=== PATIENT | male | born 1960 | race Caucasian/White ===

== ENCOUNTER 2022-11-01 14:08 | Emergency (ER) | payer OTHER ==
[~2022-11-01] VITALS: Ht 175.3 cm; Wt 81.6 kg
--- NOTE | 2022-11-01 14:20 | NUR ---
BIB [facility], RIGHT KNEE PAIN,S/P FALL FROM LDDER WHILE CLEANING HIS GUTTER NO LOC, HIT BACK OF HEAD AGAINST GROUND
[2022-11-01] MEDS ORDERED: NAPR-1192 PO ×2 (17:06→17:10)
--- NOTE | 2022-11-01 17:30 | NUR ---
knee immobilizer place by emt , provided crutches and instructions given
[2022-11-01] MEDS ORDERED: LISINOPRIL (20MG) 20 MG TABLET ONE (17:35)
[2022-11-01 17:46] VITALS: BP 161/81
--- NOTE | 2022-11-01 17:46 | NUR ---
Patient discharged to home in stable condition. Written and verbal after care instructions given. Patient verbalizes understanding of instruction.
[2022-11-01] MEDS ORDERED: LISINOPRIL (20MG) 20 MG TABLET PO SCH (18:00)
== END 2022-11-01 17:47 | disposition home or self-care (01) ==
LOC: ER 14:15
DX: S76.111A Strain of right quadriceps muscle, fascia and tendon, initial encounter (principal); I49.3 Ventricular premature depolarization; I10 Essential (primary) hypertension; Z95.1 Presence of aortocoronary bypass graft; Z60.2 Problems related to living alone; Z79.899 Other long term (current) drug therapy; W01.0XXA Fall on same level from slipping, tripping and stumbling without subsequent striking against object, initial encounter; Y93.89 Activity, other specified; Y92.89 Other specified places as the place of occurrence of the external cause; Y99.8 Other external cause status
CPT/HCPCS: 70450-TC; 73564-TC